=== PATIENT | male | born 1980 | race Asian ===

== ENCOUNTER 2017-06-19 16:21 | Emergency (ER) | payer MEDICAID ==
[2017-06-19 16:36] VITALS: BP 140/99; PULSE 78; RESP 16; TEMP 98.4; O2SAT 94
--- NOTE | 2017-06-19 16:36 | EDPHY ---
H & P Time Seen by Provider: 06/19/17 16:32 HPI/ROS: CHIEF COMPLAINT: Thirsty, concerned about glucose HISTORY OF PRESENT ILLNESS: Patient is a 37-year-old man with no significant past medical history who comes to the emergency department requesting glucose checking. He states that he was told 2 months ago at clinic that he was borderline diabetic. He is not on any medications. He states that for the last 48 hours he has been more thirsty than usual and this made him concerned about his glucose level. He otherwise does not feel ill. No pain. No fever. No diarrhea. No vomiting. No abdominal pain. No confusion. REVIEW OF SYSTEMS: Constitutional: denies: chills, fever, recent illness, recent injury EENTM: denies: blurred vision, double vision, nose congestion Respiratory: denies: cough, shortness of breath Cardiac: denies: chest pain, irregular heart rate, lightheadedness, palpitations Gastrointestinal/Abdominal: denies: abdominal pain, diarrhea, nausea, vomiting, blood streaked stools Genitourinary: denies: dysuria, frequency, hematuria, pain Musculoskeletal: denies: joint pain, muscle pain Skin: denies: lesions, rash, jaundice, bruising Neurological: denies: headache, numbness, paresthesia, tingling, dizziness, weakness Hematologic/Lymphatic: denies: blood clots, easy bleeding, easy bruising Immunologic/allergic: denies: HIV/AIDS, transplant EXAM: GENERAL: Well-appearing, well-nourished and in no acute distress. HEAD: Atraumatic, normocephalic. EYES: Pupils equal round and reactive to light, extraocular movements intact, sclera anicteric, conjunctiva are normal. ENT: TMs normal, nares patent, oropharynx clear without exudates. Moist mucous membranes. NECK: Normal range of motion, supple without lymphadenopathy or JVD. LUNGS: Breath sounds clear to auscultation bilaterally and equal. No wheezes rales or rhonchi. HEART: Regular rate and rhythm without murmurs, rubs or gallops. ABDOMEN: Soft, nontender, normoactive bowel sounds. No guarding, no rebound. No masses appreciated. BACK: No CVA tenderness, no spinal tenderness, step-offs or deformities EXTREMITIES: Normal range of motion, no pitting or edema. No clubbing or cyanosis. NEUROLOGICAL: Cranial nerves II through XII grossly intact. Normal speech, normal gait. 5/5 strength, normal movement in all extremities, normal sensation PSYCH: Normal mood, normal affect. SKIN: Warm, dry, normal turgor, no visible rashes or lesions. Source: Patient Exam Limitations: No limitations - Medical/Surgical History Hx Asthma: No Hx Chronic Respiratory Disease: No Hx Diabetes: No Hx Cardiac Disease: No Hx Renal Disease: No Hx Cirrhosis: No Hx Alcoholism: No Hx HIV/AIDS: No Hx Splenectomy or Spleen Trauma: No Other PMH: denies - Family History Significant Family History: No pertinent family hx - Social History Smoking Status: Never smoked Alcohol Use: Sober Drug Use: None Constitutional: Initial Vital Signs Temperature (C) 36.9 C 06/19/17 16:27 Heart Rate 78 06/19/17 16:27 Respiratory Rate 16 06/19/17 16:27 Blood Pressure 140/99 H 06/19/17 16:27 O2 Sat (%) 94 06/19/17 16:27 O2 Delivery Mode Room Air Allergies/Adverse Reactions: No Known Allergies Allergy (Verified 06/19/17 16:27) Home Medications: Medication Instructions Recorded NK [No Known Home Meds] 06/19/17 Medical Decision Making ED Course/Re-evaluation: We discussed the lab results. The patient is very grateful. He otherwise has no complaints and is ready to go home. We discussed follow-up and indications for returning. Differential Diagnosis: Partial list of the Differential diagnosis considered include but were not limited to; hyperglycemia, electrolyte abnormality, dehydration, anxiety and although unlikely based on the history and physical exam, I also considered fever, diarrhea, renal insufficiency, liver disease. I discussed these differential diagnoses and the plan with the patient as well as the usual and expected course. The patient understands that the diagnosis is provisional and that in medicine we are not always correct and that further workup is often warranted. Usual and customary warnings were given. All of the patient's questions were answered. The patient was instructed to return to the emergency department should the symptoms at all worsen or return, otherwise to followup with the physician as we discussed. - Data Points Laboratory Results: Laboratory Results 06/19/17 16:45 06/19/17 16:45 Sodium 141 mEq/L mEq/L (134-144) Potassium 4.4 mEq/L mEq/L (3.5-5.2) Chloride 100 mEq/L mEq/L (97-110) Carbon Dioxide 25 mEq/l mEq/l (22-31) Anion Gap 16 mEq/L mEq/L (8-16) BUN 20 mg/dL mg/dL (7-23) Creatinine 1.0 mg/dL mg/dL (0.7-1.3) Estimated GFR > 60 Glucose 81 mg/dL mg/dL (70-100) Calcium 10.4 mg/dL mg/dL (8.5-10.4) Total Bilirubin 1.0 mg/dL mg/dL (0.1-1.4) AST 24 IU/L IU/L (17-59) ALT 56 IU/L IU/L (21-72) Alkaline Phosphatase 83 IU/L IU/L (38-126) Total Protein 7.7 g/dL g/dL (6.3-8.2) Albumin 4.4 g/dL g/dL (3.5-5.0) Departure - Departure Disposition: Home, Routine, Self-Care Clinical Impression: Dehydration symptoms Condition: Fair Instructions: Dehydration (ED) Referrals: Pia Guerrero MD [Medical Doctor] - As per Instructions
[2017-06-19 17:03] LABS: ALANINE AMINOTRANSFERASE 56 IU/L (21-72); ALBUMIN 4.4 g/dL (3.5-5.0); ALKALINE PHOSPHATASE 83 IU/L (38-126); ANION GAP 16 mEq/L (8-16); ASPARTATE AMINOTRANSFERASE 24 IU/L (17-59); CALCIUM 10.4 mg/dL (8.5-10.4); CARBON DIOXIDE 25 mEq/l (22-31); CHLORIDE 100 mEq/L (97-110); GLOMERULAR FILTRATION RATE > 60; GLUCOSE 81 mg/dL (70-100); POTASSIUM 4.4 mEq/L (3.5-5.2); SODIUM 141 mEq/L (134-144); TOTAL PROTEIN 7.7 g/dL (6.3-8.2)
== END 2017-06-19 17:11 | disposition home or self-care (01) ==
LOC: CED 16:21
DX: E86.0 Dehydration (principal)
CPT/HCPCS: 80053-PO

== ENCOUNTER 2017-12-18 16:31 | Emergency (ER) | payer MEDICAID ==
[2017-12-18] MEDS ORDERED: ONDANSETRON 4 MG/2 ML VIAL IVP ONE (16:48)
[2017-12-18] MEDS ORDERED: KETOROLAC 30 MG/1 ML SDV IVP ONE (16:48)
[2017-12-18] MEDS: NS 1,000 ML IV ONE ×2 (16:50→17:55)
[2017-12-18 16:56] LABS: PLATELET COUNT 310 10^3/uL (150-400)
[2017-12-18] MEDS ORDERED: ACETAMINOPHEN 500 MG TAB PO ONE (17:02)
[2017-12-18] MEDS ORDERED: NS 1,000 ML IV ONE (17:19)
--- NOTE | 2017-12-18 17:53 | EDPHY ---
H & P Time Seen by Provider: 12/18/17 16:44 HPI/ROS: This patient complains of left lumbar back pain gradual in onset 2 days prior to arrival constant since that time and increasing in intensity with peak intensity 9/10 achy in nature nonradiating similar to pain from kidney stone in the past. He has associated nausea but no vomiting. He took ibuprofen yesterday-600 mg at bedtime with minimal relief. No other exacerbating factors. Patient reports associated dark appearing urine. He came in by private vehicle accompanied by his teenage son. ROS: Constitutional: No fevers or chills HEENT: No complaints new line pulmonary: No cough shortness of breath Cardiovascular: No chest pain or heart palpitations GI: He denies any associated abdominal pain. No belly distention. No pulsatile pain. : No testicular pain or swelling. No urethral discharge. 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 No midline back pain. Neuro: No numbness tingling weakness bowel or bladder incontinence. Complete review of symptoms is otherwise negative. Past Medical/Surgical History: Prior kidney stones Smoking Status: Never smoked Physical Exam: General Appearance: Alert, mild distress due to pain Eyes: Pupils equal and round no pallor or injection. ENT, Mouth: Mucous membranes moist. Respiratory: There are no retractions, lungs are clear to auscultation. Cardiovascular: Regular rate and rhythm. Gastrointestinal: Abdomen is soft and nontender, no masses, bowel sounds normal. Back: Positive left CVA tenderness. He also has some muscle spasm in the left paraspinous lumbar musculature. No midline tenderness. No right CVA tenderness. : No testicular tenderness. Neurological: GCS 15 without focal deficits. He maintains normal light touch sensory exam dry lower extremities 5/5 strength in great toe dorsiflexion plantar flexion bilaterally. Skin: Warm and dry, no rashes. Musculoskeletal: Neck is supple nontender. Extremities are symmetrical, full range of motion. Psychiatric: Mood and affect normal DIFFERENTIAL DIAGNOSIS: After history and physical exam differential diagnosis was considered for ureteral stone, pyelonephritis, lumbar muscle strain, discogenic disease Constitutional: Initial Vital Signs Temperature (C) 36.7 C 12/18/17 16:37 Heart Rate 67 12/18/17 16:37 Respiratory Rate 20 12/18/17 16:37 Blood Pressure 149/104 H 12/18/17 16:37 O2 Sat (%) 95 05/19/18 16:37 O2 Delivery Mode Room Air Allergies/Adverse Reactions: No Known Allergies Allergy (Verified 12/18/17 16:42) Home Medications: Medication Instructions Recorded Ondansetron Odt [Zofran Odt] 4 - 8 mg PO Q4PRN PRN #4 tab 12/18/17 Tamsulosin HCl [Flomax 0.4 MG (*)] 0.4 mg PO DAILY #10 cap 12/18/17 traMADol [Ultram 50 mg (*)] 50 - 100 mg PO Q4 PRN #20 tab 12/18/17 MDM/Departure - MDM Diagnostics: Urinalysis reveals hematuria CBC and basic metabolic panel are normal Imaging Results: KUB: I do not appreciate evidence of radiopaque nephrolithiasis/ureteral stone Procedures: Limited bedside renal ultrasound-indication renal colic and hematuria otherwise healthy young patient Procedure. After verbal consent using abdominal probe the right kidney is visualized with calices and collecting system normal in appearance. The left upper quadrant isn't visualized with left renal calices appearing distended and collecting system distended consistent with hydronephrosis. Impression: Left-sided hydronephrosis on limited bedside ultrasound Medications Given: Discontinued Medications Acetaminophen (Tylenol) 1,000 mg PO EDNOW ONE Stop: 12/18/17 17:03 Last Admin: 12/18/17 17:13 Dose: 1,000 mg Sodium Chloride (Ns) 1,000 mls @ 0 mls/hr IV EDNOW ONE; Wide Open PRN Reason: Protocol Stop: 12/18/17 16:49 Last Admin: 12/18/17 16:50 Dose: 1,000 mls Sodium Chloride (Ns) 1,000 mls @ 0 mls/hr IV ONCE ONE; Wide Open PRN Reason: Protocol Stop: 12/18/17 17:20 Last Admin: 12/18/17 17:56 Dose: 1,000 mls Ketorolac Tromethamine (Toradol) 15 mg IVP EDNOW ONE Stop: 12/18/17 16:49 Last Admin: 12/18/17 16:55 Dose: 15 mg Ketorolac Tromethamine (Toradol) 15 mg IVP EDNOW ONE Stop: 12/18/17 17:59 Last Admin: 12/18/17 18:05 Dose: 15 mg Ondansetron HCl (Zofran) 4 mg IVP EDNOW ONE Stop: 12/18/17 16:49 Last Admin: 12/18/17 16:57 Dose: 4 mg Ondansetron HCl (Zofran Odt 4 Mg Prepack#2) 1 btl TAKEHOME EDNOW ONE Stop: 12/18/17 19:39 Last Admin: 12/18/17 19:46 Dose: 1 btl Tamsulosin HCl (Flomax) 0.4 mg PO EDNOW ONE Stop: 12/18/17 18:29 Last Admin: 12/18/17 18:32 Dose: 0.4 mg Tramadol HCl (Ultram) 100 mg PO EDNOW ONE Stop: 12/18/17 20:19 Last Admin: 12/19/17 04:52 Dose: Not Given ED Course/Re-evaluation: IV Toradol, and Zofran, p.o. Tylenol with improvement in pain from initial 9/10 down to 5/10. Patient felt some improvement. Tx'd with 2 L normal saline bolus Flomax p.o. Discussion: Patient with findings of renal colic, gross hematuria, on helpful KUB but limited bedside ultrasound with findings consistent with hydronephrosis on the left. These findings are consistent with left ureteral stone I counseled patient regarding this. Will continue him on Flomax, ibuprofen and Tylenol and tramadol in addition if needed for pain control. Zofran if needed for nausea or vomiting. The patient is given a filter instructed to filter is urine with plan to follow up with Dr. Copeland, urology if he has not passed a stone over the next 3-5 days. He understands need to return should she develop any significant worsening of symptoms despite the treatment plan - Depart Disposition: Home, Routine, Self-Care Clinical Impression: Renal colic on left side, History of nephrolithiasis Hematuria Qualifiers: Hematuria type: gross Qualified Code(s): R31.0 - Gross hematuria Condition: Good Instructions: Ureteral Stones (ED) Additional Instructions: Diagnosis: Kidney pain with bloody urine You likely have a ureteral stone. Plan: Drink plenty fluids Ibuprofen-600 mg per 6 hr for pain as needed Tylenol in addition Tramadol in addition if needed. No driving, alcohol or come tramadol Zofran if needed for nausea. This mellitus under the tongue. Flomax medication to help dilate the ureter to make it more likely feet to pass the stone. Filter your urine to document passage of the stone Follow up with Dr. Copeland-urologist if you have not passed the stone with treatment plan over the next few days. Return emergency department for any significant worsening despite treatment plan such as onset of vomiting or other concerns Prescriptions: Ondansetron Odt [Zofran Odt] 4 - 8 mg PO Q4PRN PRN #4 tab PRN Reason: Vomiting Tamsulosin HCl [Flomax 0.4 MG (*)] 0.4 mg PO DAILY #10 cap traMADol [Ultram 50 mg (*)] 50 - 100 mg PO Q4 PRN #20 tab PRN Reason: breakthrough pain Referrals: ERICK ZHANG [Other] - As per Instructions Garland Copeland MD [Medical Doctor] - As per Instructions
[2017-12-18] MEDS ORDERED: KETOROLAC 15 MG/1 ML SDV IVP ONE (17:58)
[2017-12-18] MEDS ORDERED: TAMSULOSIN HCL 0.4 MG CAP PO ONE (18:28)
[2017-12-18] MEDS ORDERED: ONDANSETRON 4MG PREPACK#2 BTL TAKEHOME ONE (19:38)
[2017-12-18 19:51] VITALS: BP 132/62
[2017-12-18] MEDS ORDERED: traMADol 50 MG TAB PO ONE (20:18)
== END 2017-12-18 19:50 | disposition home or self-care (01) ==
LOC: CED 16:31
DX: N23 Unspecified renal colic (principal); R31.0 Gross hematuria; E86.9 Volume depletion, unspecified; Z87.442 Personal history of urinary calculi
CPT/HCPCS: 74018-PO; 80048-PO; 81015-PO; 96374; J1885; J2405

== ENCOUNTER 2018-01-05 22:07 | Emergency (ER) | payer MEDICAID ==
[2018-01-05] MEDS ORDERED: NS 1,000 ML IV ONE (22:12)
--- NOTE | 2018-01-05 22:17 | EDPHY ---
H & P Source: Patient - Medical/Surgical History Hx Asthma: No Hx Chronic Respiratory Disease: No Hx Diabetes: No Hx Cardiac Disease: No Hx Renal Disease: No Hx Cirrhosis: No Hx Alcoholism: No Hx HIV/AIDS: No Hx Splenectomy or Spleen Trauma: No Other PMH: kidney inf. HTN - Social History Smoking Status: Never smoked Time Seen by Provider: 01/05/18 22:17 HPI/ROS: HPI CHIEF COMPLAINT: Hematuria, Lower abdominal pain. HISTORY OF PRESENT ILLNESS: Patient is a 37-year-old male, is otherwise healthy does have a history of kidney stones, he was recently seen here in the emergency room on 12/18 for back pain and hematuria and diagnosed with a kidney stone. At that time he had an x-ray and a limited bedside ultrasound that did not reveal any kidney stones. However he was not treated empirically with Flomax tramadol and Zofran. Patient now presents back to the emergency room with lower abdominal pain and worsening hematuria. Patient denies any vomiting or fever. Denies chills. Denies significant flank pain. Pain is located 7/10 in his lower abdomen. He states that he noticed some blood in his urine last night however progressively got worse this evening. Past Medical History: Kidney stones, hypertension Past Surgical History: Denies any recent surgery Social History: Denies daily use of drugs alcohol tobacco. Family History: Noncontributory ROS REVIEW OF SYSTEMS: A comprehensive 10 point review of systems is otherwise negative aside from elements mentioned in the history of present illness. Exam Constitutional appears nontoxic no acute distress, triage nursing summary reviewed, vital signs reviewed, awake/alert. Eyes normal conjunctivae and sclera, EOMI, PERRLA. HENT normal inspection, atraumatic, moist mucus membranes, no epistaxis, neck supple/ no meningismus, no raccoon eyes. Respiratory clear to auscultation bilaterally, normal breath sounds, no respiratory distress, no wheezing. Cardiovascular rate normal, regular rhythm, no murmur, no edema, distal pulses normal. Gastrointestinal very subtle tenderness in lower abdomen, no rebound, no guarding, normal bowel sounds, no distension, no pulsatile mass. Genitourinary no CVA tenderness. Musculoskeletal no midline vertebral tenderness, full range of motion, no calf swelling, no tenderness of extremities, no meningismus, good pulses, neurovascularly intact. Skin pink, warm, & dry, no rash, skin atraumatic. Neurologic awake, alert and oriented x 3, AAOx3, moves all 4 extremities equally, motor intact, sensory intact, CN II-XII intact, normal cerebellar, normal vision, normal speech. Psychiatric normal mood/affect. Heme/Lymph/Immune no lymphadenopathy. Differential diagnosis includes but is not limited to and in no particular order : Kidney stones, hydroureter, hydronephrosis, bladder stone, bladder cancer, Bowel obstruction, appendicitis, gallbladder disease, diverticulitis, colitis, enteritis, perforated viscus, gastritis, GERD, esophagitis, urinary tract infection, pyelonephritis, kidney stones Medical Decision Making: Plan for this patient given his lower abdominal pain with hematuria will obtain blood work, urine dip and then send formal urinalysis , check basic blood work including chemistry in kidney function additionally CT scan abdomen pelvis without contrast for hematuria lower abdominal pain concerning for kidney stone. I think AAA is unlikely. Will start the patient with IV fluids. Toradol for pain control. Re-evaluation: 2252: CT scan abdomen pelvis without IV contrast shows a left-sided UPJ stone. 4.5 mm with mild hydronephrosis. I have updated the patient about his kidney stone. He will need to follow up with Urology. I have ordered him a new prescription for Flomax, [place] and Zofran. Patient understands return emergency room if develops worsening abdominal pain flank pain fever vomiting. Urinalysis pending at this time. As well as CBC. (Sean Arrieta) Constitutional: Initial Vital Signs Temperature (C) 36.4 C 01/05/18 22:17 Heart Rate 88 01/05/18 22:17 Respiratory Rate 16 01/05/18 22:17 Blood Pressure 143/100 H 01/05/18 22:17 O2 Sat (%) 96 01/05/18 22:17 O2 Delivery Mode Room Air Allergies/Adverse Reactions: No Known Allergies Allergy (Verified 01/05/18 22:21) Home Medications: Medication Instructions Recorded Ondansetron Odt [Zofran Odt] 4 - 8 mg PO Q4PRN PRN #4 tab 12/18/17 Tamsulosin HCl [Flomax 0.4 MG (*)] 0.4 mg PO DAILY #10 cap 12/18/17 traMADol [Ultram 50 mg (*)] 50 - 100 mg PO Q4 PRN #20 tab 12/18/17 Ciprofloxacin [Cipro] 500 mg PO BID #10 tab 01/05/18 Hydrocodone/APAP 5/325 [Apache 1 - 2 tab PO Q4H PRN #10 tab 01/05/18 5/325] Ondansetron HCl [Zofran] 4 mg PO Q4-6PRN PRN #10 tablet 01/05/18 Tamsulosin HCl [Flomax] 0.4 mg PO DAILY #10 cap 01/05/18 Medical Decision Making Other Provider: For the most part this patient's care was performed by Dr. Martin. At the time of change of shift his CBC urinalysis are pending. I discussed the case with Dr. Martin and related the final formation of the laboratory values to the patient. Briefly patient seen approximately 2 weeks ago at which time he had a clinically suspected kidney stone with normal bedside ultrasound not showing significant obstruction with hematuria without significant bacteriuria. In the interim he was doing well until yesterday when he started having the pain. This time, his urinalysis reveals 1+ bacteria on a rather dilute specimen 1.004. I have asked for culture performed. His CBC is normal. Renal function is preserved. As to his elevated glucose of 200, his was normal on the 17 of December at 88. Thereby, no reason to truly suspect that he has diabetes per se. Films reviewed by me on the PACS. Radiologist dictated report reviewed. I have discussed the case with Dr. Shellie johnson who is on-call for Urology. As the patient is doing well clinically, nontoxic, with normal white count and no fever, he recommends follow-up tomorrow, Dr. Stevens will be in the office. In the interim he would like the patient to be on an antibiotic, we discussed using Cipro. Differential diagnosis includes, but is not limited to: Renal colic, kidney stones, ureterolithiasis, appendicitis, gastritis, mesenteric adenitis, muscle strain. Constipation. (Curtis Cardnoa) - Data Points Laboratory Results: Laboratory Results 01/05/18 22:22 Medications Given: Discontinued Medications Ciprofloxacin (Cipro) 500 mg PO EDNOW ONE PRN Reason: Protocol Stop: 01/05/18 23:39 Last Admin: 01/05/18 23:50 Dose: 500 mg Sodium Chloride (Ns) 1,000 mls @ 0 mls/hr IV ONCE ONE PRN Reason: Wide Open Stop: 01/05/18 22:13 Last Admin: 01/05/18 22:44 Dose: 1,000 mls Ketorolac Tromethamine (Toradol) 15 mg IVP EDNOW ONE Stop: 01/05/18 22:52 Last Admin: 01/05/18 22:58 Dose: 15 mg Departure - Departure Disposition: Home, Routine, Self-Care Clinical Impression: Kidney stone Condition: Good Instructions: Kidney Stones (ED) Additional Instructions: 1. Drink lots of fluids stay well-hydrated 2. Please follow up with Urology. 3. Return to the emergency room if you have worsening pain, vomiting or fever. ALSO: - strain your urine to see if you catch the stone - stay out of the sun while on the CIPRO as it can cause phototoxicity = worse than a sun burn. Referrals: Patient,NotPresent [Primary Care Provider] - As per Instructions Tomy Hensley MD [Medical Doctor] - 1 day without fail (We spoke with Dr. Hensley, who stated pt to be seen [facility], 01/06. Llikely by Dr. Joshua.) Stand Alone Forms: Work Excuse Prescriptions: Ciprofloxacin [Cipro] 500 mg PO BID #10 tab Hydrocodone/APAP 5/325 [[place]ache 5/325] 1 - 2 tab PO Q4H PRN #10 tab PRN Reason: Pain, Moderate Ondansetron HCl [Zofran] 4 mg PO Q4-6PRN PRN #10 tablet PRN Reason: Nausea/Vomiting, Use 1st Tamsulosin HCl [Flomax] 0.4 mg PO DAILY #10 cap
[2018-01-05] MEDS ORDERED: KETOROLAC 15 MG/1 ML SDV IVP ONE (22:51)
[2018-01-05 23:05] LABS: PLATELET COUNT 284 10^3/uL (150-400)
[2018-01-05] MEDS ORDERED: CIPROFLOXACIN 500 MG TAB PO ONE (23:38)
[2018-01-06 00:03] VITALS: BP 140/92
== END 2018-01-05 23:50 | disposition home or self-care (01) ==
LOC: CED 22:07
DX: N20.0 Calculus of kidney (principal); I10 Essential (primary) hypertension; E86.9 Volume depletion, unspecified
CPT/HCPCS: 74176-PO; 80053-PO; 96374; J1885

== ENCOUNTER 2018-07-22 12:33 | Inpatient (IN) | payer MEDICAID ==
[2018-07-22] MEDS ORDERED: ONDANSETRON 4 MG/2 ML VIAL IVP ONE (12:54)
[2018-07-22] MEDS ORDERED: NS 1,000 ML IV ONE ×2 (12:54)
[2018-07-22] MEDS ORDERED: HYDROmorphONE/DILAUDID 2 MG/ML INJ IVP ONE (12:55)
[2018-07-22] MEDS ORDERED: KETOROLAC 15 MG/1 ML SDV IVP ONE (13:30)
[2018-07-22] MEDS ORDERED: METOCLOPRAMIDE 10 MG/2 ML VIAL IVP ONE (13:53)
[2018-07-22] MEDS ORDERED: TAMSULOSIN HCL 0.4 MG CAP PO ONE (14:20)
--- NOTE | 2018-07-22 14:28 | EDPHY ---
H & P Smoking Status: Never smoked Time Seen by Provider: 07/22/18 12:47 HPI/ROS: This patient has recently been worked up for known kidney stones including a 6 mm stone in the lower pole of the right kidney and presents with onset of right flank pain severe intensity since 4:00 a.m.. The pain is 10/10 despite taking 2 Percocets 2 hr prior to arrival. He tried Percocet earlier in the morning and vomited thereafter. He has ongoing nausea currently. He notes no other associated symptoms except difficulty urinating. He describes no significant urge to urinate despite hydrating. He denies any other associated symptoms. He denies any radiation of the pain from his right flank. ROS: Constitutional: No fevers or other symptoms Pulmonary: No shortness of breath Cardiovascular: No lightheadedness GI: No belly pain. Normal bowel movements. : No testicular pain or swelling. No urethral discharge. No hematuria. No dysuria 10 point review of symptoms is performed and otherwise negative with exception of pertinent positives and negatives listed in HPI and ROS (Ricardo Gonzalez) Past Medical/Surgical History: Kidney stones followed by Dr. Hensley, urology (Ricardo Gonzalez) Physical Exam: General Appearance: Alert, in moderate distress due to pain Eyes: Pupils equal and round no pallor or injection. ENT, Mouth: Mucous membranes moist. Respiratory: There are no retractions, lungs are clear to auscultation. Cardiovascular: Regular rate and rhythm. Gastrointestinal: Abdomen is soft and nontender, no masses, bowel sounds normal. Back: Positive right CVA tenderness : No testicular tenderness Neurological: GCS 15 Skin: Warm and dry, no rashes. Musculoskeletal: Neck is supple nontender. Extremities are symmetrical, full range of motion. Psychiatric: Mood and affect are normal DIFFERENTIAL DIAGNOSIS: After history and physical exam differential diagnosis was considered for ureteral stone, pyelonephritis or other UTI, musculoskeletal back pain (Ricardo Gonzalez) Constitutional: Initial Vital Signs Temperature (C) 36.5 C 07/22/18 12:43 Heart Rate 76 07/22/18 12:43 Respiratory Rate 16 07/22/18 12:43 Blood Pressure 142/92 H 07/22/18 12:43 O2 Sat (%) 94 07/22/18 12:43 O2 Delivery Mode Room Air O2 (L/minute) 2 Allergies/Adverse Reactions: No Known Allergies Allergy (Verified 07/22/18 12:39) Home Medications: Medication Instructions Recorded traMADol [Ultram 50 mg (*)] 50 - 100 mg PO Q4 PRN #20 tab 12/18/17 Ondansetron HCl [Zofran] 4 mg PO Q4-6PRN PRN #10 tablet 01/05/18 Lisinopril [Zestril 10 mg (*)] 10 mg PO DAILY 07/22/18 Potassium Cl [Klor-Con 20 meq (*)] 20 meq PO DAILY 07/22/18 Tamsulosin HCl [Flomax] 0.4 mg PO DAILY #10 capsule 07/22/18 oxyCODONE/APAP 5/325 [Percocet 1 tab PO Q6 PRN 07/22/18 5/325 (*)] MDM/Departure - MDM Imaging: Discussed imaging studies w/ fisher scallop Radiologist - MDM Imaging Results: Imaging Impressions Abdomen/Pelvis CT 07/22/18 13:11 Impression: 1. Moderate right hydronephrosis secondary to a 5 x 6 x 8 mm lumbar-level ureterolith. 2. Nonobstructive punctate left nephrolithiasis. Findings were discussed with RICARDO GONZALEZ MD at 13:49, on 07/22/2018. Attention: This CT examination is specifically designed to evaluate patients who are clinically suspected of having acute obstructive uropathy. This examination does not use radiographic contrast, and as such, provides only a limited evaluation of the abdomen, pelvis, and retroperitoneum. If there is further clinical suspicion for pathological conditions other than obstructive uropathy, a complete CT evaluation of the abdomen and pelvis utilizing intravenous, oral, and rectal contrast should be considered. Medications Given: Potassium Chloride/Sodium Chloride (Ns W/ 20 Kcl/L) 1,000 mls @ 125 mls/hr IV CONT FESTUS Stop: 01/18/19 21:29 Last Admin: 07/22/18 22:27 Dose: 1,000 mls Tamsulosin HCl (Flomax) 0.4 mg PO DAILY FESTUS Stop: 01/18/19 21:29 Last Admin: 07/22/18 22:30 Dose: 0.4 mg Discontinued Medications Diphenhydramine HCl (Benadryl Injection) 25 mg IVP EDNOW ONE Stop: 07/22/18 13:54 Last Admin: 07/22/18 14:07 Dose: 25 mg Hydromorphone HCl (Dilaudid) 1 mg IVP EDNOW ONE Stop: 07/22/18 12:56 Last Admin: 07/22/18 13:15 Dose: 1 mg Sodium Chloride (Ns) 1,000 mls @ 0 mls/hr IV EDNOW ONE; Wide Open PRN Reason: Protocol Stop: 07/22/18 12:55 Last Admin: 07/22/18 13:30 Dose: 1,000 mls Sodium Chloride (Ns) 1,000 mls @ 0 mls/hr IV EDNOW ONE; Wide Open PRN Reason: Protocol Stop: 07/22/18 12:55 Last Admin: 07/22/18 14:11 Dose: 1,000 mls Ketorolac Tromethamine (Toradol) 15 mg IVP EDNOW ONE Stop: 07/22/18 13:31 Last Admin: 07/22/18 13:59 Dose: 15 mg Metoclopramide HCl (Reglan Injection) 10 mg IVP EDNOW ONE Stop: 07/22/18 13:54 Last Admin: 07/22/18 14:07 Dose: 10 mg Ondansetron HCl (Zofran) 4 mg IVP EDNOW ONE Stop: 07/22/18 12:55 Last Admin: 07/22/18 13:15 Dose: 4 mg Tamsulosin HCl (Flomax) 0.4 mg PO EDNOW ONE Stop: 07/22/18 14:21 Last Admin: 07/22/18 14:31 Dose: 0.4 mg ED Course/Re-evaluation: IV Zofran 4 mg with initial relief of nausea 1 mg Dilaudid IV and 15 mg of Toradol IV with partial relief of pain Patient had recurrence of vomiting treated with Reglan and Benadryl Is also treated with Flomax p. O. After review of CT results Discussed the CT results with Dr. Villagran-mid right ureteral stone 6 x 5 x 8 mm with moderate hydronephrosis on the right side A placed a call to Dr. Hensley's office-urology at 2:30 p.m. He was in a procedure at that time but will call back postprocedure 12 coordinate care plan for this patient with large ureteral with At 3:00 p.m. The patient's pain is under good control in his nausea is controlled. Discussed case with Dr. Gretchen Murphy at 3:00 p.m. Who will follow up with call from Dr. Raya for and final disposition. (Ricardo Gonzalez) I took over care of this patient at 3:00 p.m.. This patient presents with with a history of ureterolithiasis. He has a 6 mm right-sided ureteral stone at the L3, L4 level with moderate hydronephrosis. His medications in the emergency department have included Zofran, Dilaudid, Toradol, Benadryl and Reglan. He received the Benadryl and Reglan secondary to continued vomiting after Zofran. He is currently sleepy and needs more time to metabolize his medication. He is then to be reassessed for disposition. 4:45 p.m., the patient was re-evaluated, currently his pain is well controlled. I again reviewed results of his CT scan findings and diagnosis. I discussed admission with him for observation, pain control and urology consultation. At this time he does not want to be admitted. The patient competently engages in shared decision making. They demonstrate capacitance to make decisions. His son is currently in the room with him. Dr. Gonzalez has prescribed him Flomax, Zofran and Percocet for pain control. He lives a 0.5 mi from the emergency department and states he can easily return here if need be. He said he will arrange for follow-up with Dr. Hensley, his urologist, next week. He has been instructed to return to the emergency department for uncontrolled pain, vomiting , fever or other serious concerns. All of his questions were answered. He was discharged from the emergency department in good condition with his son. We have arranged for a taxi to take them 1/2 mi home. 6:00 p.m., I reviewed the patient's chart as well as blood work. He has a significant elevation of his creatinine at 1.6. He had a normal creatinine in December of this year. We contacted the patient. He stated that his pain was starting to come back. I have instructed him to return to the emergency department for pain control and admission. I feel it is unlikely given the holiday that he will be able to follow up with his urologist on Wednesday. I feel admission to the hospitalist service is warranted at this time. I feel he will need urology consultation as well as IV hydration and pain control at minimum. The patient is in agreement to return to the emergency department to be admitted to our hospitalist service. 7:00 p.m., IV re-established on the patient. He was started on IV normal saline with a rate of 250 cc an hour for the next 2 hr. He will be given IV hydromorphone at 0.5 mg as needed for pain. Hospitalist paged. 7:30 p.m., spoke with on-call hospitalist Dr. Damon. Case discussed in detail with him. He accepts this patient for admission to the hospitalist service. Urology consultation deferred to the hospitalist service. I have filled out the appropriate transfer paperwork. The patient will go by private vehicle with a relative to the [facility]. His remaining emergency department course under my care has been uneventful. He was transferred in stable condition to the [facility]. (Marcus Murphy) - Depart Disposition: [facility] Inpatient Acute Clinical Impression: Ureteral stone with hydronephrosis, Elevated serum creatinine, Acute kidney injury
[2018-07-22] MEDS ORDERED: ONDANSETRON DISINTEGRATING 4 MG TAB PO PRN (21:17)
[2018-07-22] MEDS ORDERED: ONDANSETRON 4 MG/2 ML VIAL IVP PRN (21:17)
[2018-07-22] MEDS ORDERED: HYDROmorphONE/DILAUDID 1 MG/ML INJ IVP PRN (21:17)
[2018-07-22] MEDS ORDERED: ACETAMINOPHEN 325 MG TAB PO PRN (21:17)
[2018-07-22] MEDS: NS W/ 20 KCl/L 1,000 ML IV SCH (22:27)
[2018-07-22] MEDS: TAMSULOSIN HCL 0.4 MG CAP PO SCH (22:30)
--- NOTE | 2018-07-23 01:52 | GHP ---
DATE OF ADMISSION: 07/22/2018 CHIEF COMPLAINT: Right flank pain. HISTORY OF PRESENT ILLNESS: The patient is a 38-year-old gentleman with a past medical history of hy pertension as well as nephrolithiasis, who presented to the [facility] with complaints of right flank pain. He had a CT scan of his abdomen and pelvis performed, which showed moderate rig ht hydronephrosis secondary to a 5 x 6 x 8 mm lumbar level ureter stone. His creatinine was also not ed to be at 1.6, previously at 1.1. The patient was then transported by private vehicle to [facility] for direct admission. I reviewed the case with Dr. Monahan with nephrology operations label clerk this w farshad, while the patient was en route. He requested that we call him on Wednesday with the patient's room number, so that he can formally consult on the case. PAST MEDICAL HISTORY: Hypertension and nephrolithiasis. PAST SURGICAL HISTORY: None. MEDICATIONS: Lisinopril 10 mg daily, Flomax 0.4 mg daily. ALLERGIES: No known drug allergies. FAMILY HISTORY: No family history of nephrolithiasis. SOCIAL HISTORY: The patient is currently with children. He is a nonsmoker. REVIEW OF SYSTEMS: Ten-point review of systems was obtained and negative. No complaints of any feve rs or chills. EXAM: VITAL SIGNS: Temperature 36.8, blood pressure 114/75, heart rate 77, respirations 16, satting 94% on room air. GENERAL: Patient appears comfortable. He is awake, alert, conversant, no acute d istress. HEENT: Extraocular movements intact. No scleral icterus. NECK: Supple. No thyroid enla rgement. CHEST: Clear on auscultation. HEART: Regular rate and rhythm. No murmurs. ABDOMEN: So ft, nontender, nondistended. Normal bowel sounds. : No Healy catheter in place. EXTREMITIES: N o significant pitting edema. NEUROLOGIC: Cranial nerves 2-12 intact. LABS: Sodium 141, potassium 3.2, chloride 100, bicarb 24, BUN 16, creatinine 1.6, glucose of 95. ASSESSMENT/PLAN: 1. Acute kidney injury-secondary to hydronephrosis. Intravenous fluids overnight. Repeat creatinin e in the morning. Urology consultation also pending. 2. Ureter stone. Flomax started. Await formal urology consultation. 3. Hypokalemia. Replace. 4. Deep venous thrombosis prophylaxis. Hold heparin or Lovenox in light of potential intervention. DISPOSITION: Will admit under observation status at this time. /[id number]/MODL
[2018-07-23 04:54] LABS: PLATELET COUNT 235 10^3/uL (150-400)
[2018-07-23] MEDS: NS W/ 20 KCl/L 1,000 ML IV SCH (07:59)
[2018-07-23] MEDS: TAMSULOSIN HCL 0.4 MG CAP PO SCH (08:59)
[2018-07-23] MEDS ORDERED: POTASSIUM CL 20 MEQ TAB PO SCH (09:00)
[2018-07-23] MEDS ORDERED: NS 1,000 ML IV SCH (11:00)
[2018-07-23] MEDS ORDERED: IOPAMIDOL (ISOVUE-M 300) 15 ML VIAL ONE (12:33)
[2018-07-23] MEDS ORDERED: LIDOCAINE 2% JELLY 20 ML (UROJECT) ONE (13:01)
[2018-07-23] MEDS ORDERED: IOTHALAMATE MEG (CYSTO-CONRAY II) 250 ML VIAL BLADIN ONE (13:01)
[2018-07-23] MEDS ORDERED: CEFAZOLIN 2 GM/DEXTROSE/100 ML BAG IV ONE (13:03)
[2018-07-23] MEDS ORDERED: PROPOFOL 200 MG/20 ML VIAL ONE (13:24)
[2018-07-23] MEDS ORDERED: DEXAMETHASONE 4 MG/ML VIAL ONE ×2 (13:24)
[2018-07-23] MEDS ORDERED: ROCURONIUM 50 MG/5 ML VIAL ONE (13:24)
[2018-07-23] MEDS ORDERED: fentaNYL 250 MCG/5 ML INJ ONE (13:24)
[2018-07-23] MEDS ORDERED: LIDOCAINE 2% 100 MG/5 ML SYR ONE (13:25)
--- NOTE | 2018-07-23 13:41 | HOSPPROG ---
Hospitalist Progress Note Assessment/Plan: #Right sided Nephrolithiasis -[id number] right sided ureteral stone -Lithotripsy #ZANE #Right sided Hydronephrosis #Dehydration #Hx of HTN, holding Lisinopril #Hypokalemia, resolved Plan: Lithotripsy Hold Lisinopril cont IVF. Still dehydrated, would keep overnight Hold K replacement as now resolved change to inpatient. Subjective: no cp or sob. no n/v. will have Lithotripsy today Objective: Vital Signs Temp Pulse Resp BP Pulse Ox 36.9 C 84 16 121/71 H 94 07/23/18 13:06 07/23/18 13:06 07/23/18 13:06 07/23/18 13:06 07/23/18 13:06 Laboratory Results 07/23/18 04:14 07/23/18 04:14 07/22/18 07/23/18 07/24/18 05:59 05:59 05:59 Intake Total 1800 900 Balance 1800 900 - Physical Exam Constitutional: no apparent distress Eyes: PERRL Ears, Nose, Mouth, Throat: moist mucous membranes Cardiovascular: regular rate and rhythym Respiratory: no respiratory distress, no rales or rhonchi Gastrointestinal: normoactive bowel sounds, soft, non-tender abdomen Skin: warm Neurologic: AAOx3 Psychiatric: interacting appropriately, not anxious, not encephalopathic Lymph, Heme, Immunologic: No petechiae ICD10 Worksheet Patient Problems: Problems Problem Status Onset Acute kidney injury Acute Elevated serum creatinine Acute Ureteral stone with hydronephrosis Acute Hematuria Acute History of nephrolithiasis Acute Sprain of left forearm Acute
[2018-07-23] MEDS ORDERED: ALBUTEROL 3 ML DEYVIAL IH PRN (14:08)
[2018-07-23] MEDS ORDERED: fentaNYL 100 MCG/2 ML INJ IVP PRN (14:08)
[2018-07-23] MEDS ORDERED: MEPERIDINE 25 MG/0.5 ML AMP IVP PRN (14:08)
[2018-07-23] MEDS ORDERED: NALOXONE HCL 0.4 MG/ML INJ IVP PRN (14:08)
[2018-07-23] MEDS ORDERED: ONDANSETRON 4 MG/2 ML VIAL IVP PRN (14:08)
--- NOTE | 2018-07-23 14:08 | PDANEPAE ---
ANE Past Medical History - Pulmonary History Hx Oxygen in Use at Home: No Hx Sleep Apnea: No Sleep Apnea Screening Result - Last Documented: Negative - Endocrine History Hx Diabetes: No ANE Review of Systems Review of Systems: ANE Patient History - Allergies Allergies/Adverse Reactions: No Known Allergies Allergy (Verified 07/22/18 12:39) - Home Medications Home Medications: Potassium Cl [Klor-Con 20 meq (*)] 20 meq PO DAILY 07/22/18 [Last Taken 08:00] oxyCODONE/APAP 5/325 [Percocet 5/325 (*)] 1 tab PO Q6 PRN 07/22/18 [Last Taken Unknown] Hydrochlorothiazide [HCTZ (*)] 12.5 mg PO DAILY 07/23/18 [Last Taken 07/23/18 08 :00] - NPO status NPO Since - Liquids (Date): 07/22/18 NPO Since - Liquids (Time): 23:50 NPO Since - Solids (Date): 07/22/18 NPO Since - Solids (Time): 22:00 - Smoking Hx Smoking Status: Never smoked ANE Labs/Vital Signs - Labs Result Diagrams: 07/23/18 04:14 07/23/18 04:14 - Vital Signs Blood Pressure: 121/71 Heart Rate: 84 Respiratory Rate: 16 O2 Sat (%): 94 Height: 162.56 cm Weight: 72.575 kg ANE Physical Exam - Airway Neck exam: FROM Mallampati Score: Class 2 Mouth exam: poor dentition - Pulmonary Pulmonary: no respiratory distress - Cardiovascular Cardiovascular: regular rate and rhythym - ASA Status ASA Status: II ANE Anesthesia Plan Anesthesia Plan: general endotracheal anesthesia
[2018-07-23] MEDS ORDERED: SUGAMMADEX SODIUM 200 MG/2 ML VIAL IVP ONE (14:33)
--- NOTE | 2018-07-23 14:44 | PDMN ---
Medical Necessity Medical necessity: Pt meets INPT criteria per MD as of 07/23/18 and [facility] M-320 Renal Colic and Kidney Stones (est. LOS >2 MN for ongoing eval/mgmt of nephrolithiasis, ZANE, dehydration; requiring cont. IVF; lithotripsy pending).
--- NOTE | 2018-07-23 15:17 | POSTANESTH ---
Post Anesthetic Evaluation Cardiovascular Status: Similar to Pre-Op Cond Respiratory Status: Similar to Pre-op Cond. Level of Consciousness/Mental Status: Mildly Sleepy, Arousable Pain Control: Adequate, Prn Tx Ordered Nausea/Vomiting Control: Adequate, Prn Tx Ordered Complications Possibly Related to Anesthesia: None Noted
[2018-07-23] MEDS: HYDROCODONE/APAP 5/325 TAB PO PRN ×3 (16:24→22:32)
--- NOTE | 2018-07-23 17:34 | ASMTCMCOM ---
CM Note CM Note Notes: CM reviewed chart. Pt lives in [place] with and was admitted for lithotripsy d/t kidney stones. Sx was yesterday and pt still has elevated creatinine today. No therapies have been ordered. Pt likely to discharge independently. CM to follow. No CM needs identified at this time. D/C Plan: independent. Date Signed: 07/23/2018 05:33 PM Electronically Signed By:Jacquie Weaver
--- NOTE | 2018-07-23 18:08 | GCON ---
DATE OF CONSULTATION: 07/23/2018 REASON FOR CONSULTATION: Right flank pain. HISTORY OF PRESENT ILLNESS: Patient is a 38-year-old gentleman with a 6 mm right ureteral stone with hydronephrosis. He was transferred from an outside facility to [facility] for care. It is unclear as to why he was transferred. States it was for pain control although he seems to be comfortable at this point. He denies any fevers or chills. He has no urinary complaints. Denies a ny prior surgeries. He has had stones in the past, but has never seen a urologist. He is otherwise healthy besides hypertension. He has been n.p.o. He denies any allergies. No significant family hi story. PHYSICAL EXAMINATION: GENERAL: He is in no apparent distress. He seems to speak Irish very well and understands. We discussed treatment options including trial of passage, ESWL, and ureteroscopic laser lithotripsy with stent placement. He prefers definitive management. We discussed the risks an d benefits of ureteroscopic laser lithotripsy. We discussed risk of damage to the kidney, damage to the ureter, risk of anesthesia, which include heart attack, stroke, , risk of infection, risk of sepsis, stent discomfort and made it very clearly he has to follow up in the office to have the sten t removed due to the dangers of retained stent with possible loss of his kidney. He understands all these risks and wishes to proceed. VITAL SIGNS: Afebrile. Vitals are stable. LUNGS: Clear. HEAR T: Regular. ABDOMEN: Soft, nontender, nondistended. Some right flank mild tenderness upon deep pa lpation. Normal male genitalia. LABORATORY VALUES: Essentially normal. His creatinine is mildly elevated at 1.6. PLAN: Patient with a 6 mm right ureteral stone. We discussed treatment options. He wished to proce ed. Ureteroscopic laser lithotripsy with stent placement. He understands all the risks. He underst ands the benefits and wishes to proceed. He will follow up in the office in approximately a week or 2 to have the stent taken out. I gave him my card with my contact information. He should be able to be discharged home after the procedure. He should not require any further hospitalization. ___normally done on an outpatient basis. /[id number]/MODL
--- NOTE | 2018-07-24 02:11 | GOP ---
DATE OF OPERATION: 07/23/2018 SURGEON: Edgardo Monahan MD MANAGER MOLECULAR: None. ANESTHESIA: General. PREOPERATIVE DIAGNOSIS: Right proximal ureteral stone, large. POSTOPERATIVE DIAGNOSIS: Right proximal ureteral stone, large. PROCEDURE PERFORMED: right ureteroscopic laser lithotrypsy with stent placemetn and rpg FINDINGS: large stone prox ureter SPECIMENS: None. ESTIMATED BLOOD LOSS: None. DESCRIPTION OF PROCEDURE: After informed consent obtained, the patient was prepped and draped in sterile fashion. Patient was placed in the lithotomy position. A 22-Korean rigid cystoscope sheath was introduced. He had for his age a very tight prostate with a high bladder neck. The orifices were identified on the right. Retrograde pyelogram was performed which revealed an obstructing proximal right ureteral stone that must have been somewhat impacted. It was difficult to get a past it. I got a wire past it, then I put a safety wire up to it. I used a 10 cm balloon dilator to dilate his distal ureter since it seemed very narrow, 10 atmospheres for 5 minutes. Next, a ureteral access sheath was placed over the safety wire up into the mid ureter. A flexible ureteroscope was placed through the access sheath. Approximately 8- 9 mm proximal ureteral stone was identified. It was fragmented using a 200 micron holmium laser fiber. After good fragmentation was noted, another retrograde pyelogram was performed. There was no extravasation. After there were no significant fragments left, I placed a stent with a good curl in the renal pelvis and in the bladder. The ureteral access sheath had obviously been removed. He tolerated the procedure very well. He will follow up with me on an outpatient basis. He has to follow up to get another stent removed in 1-2 weeks. He will probably be discharged home today. He can call if there are any problems. COMPLICATIONS: None. DRAINS: A 26 cm 4.8-Korean double-J stent on the right. DESCRIPTION OF COMPLICATIONS: None. /[id number]/MODL MTDD
[2018-07-24 04:32] LABS: PLATELET COUNT 254 10^3/uL (150-400)
[2018-07-24] MEDS: TAMSULOSIN HCL 0.4 MG CAP PO SCH (09:53)
[2018-07-24 11:42] VITALS: BP 159/91
--- NOTE | 2018-07-24 14:19 | ASDISCHSUM ---
Discharge Information Plan Status:Home with No Needs Medically Cleared to Leave:07/23/2018 Discharge Date:07/23/2018 CM D/C Disposition:Home, Routine, Self-Care ADT D/C Disposition:Home, Routine, Self-Care Projected Discharge Date:07/23/2018 Transportation at D/C: Discharge Delay Reason: Follow-Up Date:07/23/2018 Discharge Slot: Final Diagnosis: Placement Information Patient Contact Information Contact Name:CALEB Relationship: Address:[address] [place]:[facility] Phone: [facility]/Zip Code:[place] [address] Email: Financial Information Financial Class:Medicaid Primary Plan Desc:MEDICAID HEALTH FIRST HORTICULTURAL MANAGER Primary Plan Number:[id number] Secondary Plan Desc: Secondary Plan Number: Assessment Information [facility] CM Progress Note CM Note CM Note Notes: CM reviewed chart. Pt lives in [place] with and was admitted for lithotripsy d/t kidney stones. Sx was yesterday and pt still has elevated creatinine today. No therapies have been ordered. Pt likely to discharge independently. CM to follow. No CM needs identified at this time. D/C Plan: independent. Date Signed: 07/23/2018 05:33 PM Electronically Signed By:Jacquie Weaver LACE LACPaulino Length of stay for Answers: 1 day current admission Acuity / Level of Answers: Yes Care: Did the patient have an inpatient admission? Comorbidities - select Answers: Other Notes: HTN, kidney stones all that apply # of Emergency department Answers: 1-2 visits in the last 6 months Score: 6 Date Signed: 07/24/2018 02:19 PM Electronically Signed By:Little Jimenez RN Intervention Information
--- NOTE | 2018-07-24 14:24 | ASMTDCNOTE ---
Case Management Discharge Discharge Order Complete? Answers: Yes Patient to Obtain Answers: via Family Medications Discharge Comments Notes: Pateint medically cleared for discharge to home. No needs identified. Date Signed: 07/24/2018 02:23 PM Electronically Signed By:Little Jimenez RN
--- NOTE | 2018-07-24 19:49 | PDDCSUM ---
Discharge Summary Discharge Summary: This is a 38 yo male admitted with right sided nephrolithiasis. He was admitted. He had Lithotripsy. Overall his abd pain is much better, although he does still have some pain. He is being d/c with f/u with Urology next week. He did have dehydration and ZANE and he was treated with IVF with resolution of this. DDX #Right sided Nephrolithiasis -[id number] right sided ureteral stone -Lithotripsy #ZANE #Right sided Hydronephrosis #Dehydration #HTN #Hypokalemia Exam: NAD AAOX3 RRR CTA B S/NT/ND MEDS: SEE MED REC F/U: PER ABOVE TOTAL TIME SPENT ON D/C IS 35 MINS
== END 2018-07-24 14:26 | disposition home or self-care (01) | DRG 465 ==
LOC: CED 12:33 → CEDHOLD 19:33 → F1N 21:12 → OBSVTOIN 07-23 13:37
PROVIDERS: ADMIT Internal Medicine; ATTEND Internal Medicine
PROC: 0TF68ZZ Fragmentation in Right Ureter, Via Natural or Artificial Opening Endoscopic (ICD-10-PCS; principal; 2018-07-23 12:30)
PROC: 0T768DZ Dilation of Right Ureter with Intraluminal Device, Via Natural or Artificial Opening Endoscopic (ICD-10-PCS; principal; 2018-07-23 12:30)
DX: N13.2 Hydronephrosis with renal and ureteral calculous obstruction (principal); N17.9 Acute kidney failure, unspecified; E86.0 Dehydration; I10 Essential (primary) hypertension; E87.6 Hypokalemia
CPT/HCPCS: 74176-PO; 80048-PO; 96374; C1726; C1758; C1769; C1894; C2625; G0378; J0690; J1100; J1170; J1200; J1885; J2001; J2405; J2704; J2765; J3010; Q9961; Q9967

== ENCOUNTER 2018-08-21 09:06 | Emergency (ER) | payer MEDICAID ==
[2018-08-21 09:12] VITALS: BP 107/76
[2018-08-21] MEDS ORDERED: NS 1,000 ML IV ONE (09:21)
[2018-08-21] MEDS ORDERED: HYDROmorphONE/DILAUDID 2 MG/ML INJ IVP ONE (09:21)
--- NOTE | 2018-08-21 09:25 | EDPHY ---
H & P Time Seen by Provider: 08/21/18 09:14 HPI/ROS: CHIEF COMPLAINT: Left-sided neck pain HISTORY OF PRESENT ILLNESS: Patient presents with 3 weeks of pain in the left side of his jaw and neck just below the angle of his mandible. He was seen by his primary clinic who told him to take ibuprofen and over the last week it has gotten worse. He has had a fever and some left ear fullness. Last night he took 2 hydrocodone and that did nothing for the pain since it was severe, and was not able to sleep. Worse with palpation, no restriction of range of motion of his neck, no trouble breathing or swallowing. No fever or chills and no dental symptoms. REVIEW OF SYSTEMS: Eye: no change in vision ENT: HPI Cardiac: no chest pain or syncope Pulmonary: no cough or SOB Abdomen: no vomiting, diarrhea, abdominal pain Musculoskeletal: HPI neck pain Skin: no rash Neuro: no headache, no dizziness or vertigo, no weakness or numbness in extremities, no difficulty with speech or mentation. Constitutional: no fever : no urinary symptoms A comprehensive 10 point review of systems is otherwise negative aside from elements mentioned in the history of present illness. PAST MEDICAL HISTORY: Kidney stones and hypertension Social history: Nonsmoker here with his kids General Appearance: Alert and conversant, cooperative. Eyes: No scleral icterus. ENT, Mouth: Normal mucous membranes. No dental tenderness or gum swelling, tympanic membranes normal bilaterally. Normal pharynx and no trismus. He has tenderness to palpation on his neck below the angle of the jaw laterally on the left side but no masses or fluctuance. Respiratory: Normal respiratory effort, breath sounds equal, lungs are clear to auscultation. Cardiovascular: Regular rate and rhythm. Gastrointestinal: Abdomen is soft and non tender. Neurological: Alert, face symmetric, normal motor and sensory in extremities. Ambulatory. Skin: Warm and dry, no rashes. Specifically no skin redness blisters or eschar on the left side of the neck. Musculoskeletal: Normal range of motion of the neck both in flexion extension and rotation. Psychiatric: Not agitated. Emergency Department course/MDM: Plan for IV Dilaudid 0.[address] soft tissue of the neck discussed and consented. Does not appear to have airway compromise at this time. 1008: Normal CT scan with IV contrast of the neck per Dr. Coronado. Results discussed with the patient, I think that symptomatic treatment is most appropriate at this time. He can follow up with the ENT clinic on Wednesday if not getting better. No evidence at this time of abscess or infection. He does not have evidence of zoster on his skin. Voice is normal and his range of motion of his neck both in rotation and flexion is normal. Smoking Status: Never smoked Constitutional: Initial Vital Signs Temperature (C) 36.4 C 08/21/18 09:10 Heart Rate 81 08/21/18 09:10 Respiratory Rate 16 08/21/18 09:10 Blood Pressure 107/76 08/21/18 09:10 O2 Sat (%) 96 08/21/18 09:10 O2 Delivery Mode Room Air Allergies/Adverse Reactions: No Known Allergies Allergy (Verified 08/21/18 09:08) Home Medications: Medication Instructions Recorded Tamsulosin HCl [Flomax] 0.4 mg PO DAILY #10 capsule 07/22/18 oxyCODONE/APAP 5/325 [Percocet 1 tab PO Q6 PRN 07/22/18 5/325 (*)] Hydrocodone/APAP 5/325 [[place] 1 - 2 tab PO Q4HRS PRN #30 tab 07/24/18 5/325 (*)] Medical Decision Making - Diagnostics Imaging Results: Normal CT of the neck with IV contrast per Dr. Coronado. Imaging: Discussed imaging studies w/ lever operator Radiologist Differential Diagnosis: Differential considered including but not limited to vascular dissection, ENT or soft tissue infection or abscess, torticollis, meningitis, sialoadenitis. - Data Points Laboratory Results: Laboratory Results 08/21/18 09:30 08/21/18 09:30 08/21/18 08/21/18 08/21/18 09:34 09:30 09:30 WBC 10.85 10^3/uL H 10^3/uL (3.80-9.50) RBC 5.29 10^6/uL 10^6/uL (4.40-6.38) Hgb 15.9 g/dL g/dL (13.7-17.5) POC Hgb 16.3 gm/dL gm/dL (13.7-17.5) Hct 45.7 % % (40.0-51.0) POC Hct 48 % % (40-51) MCV 86.4 fL fL (81.5-99.8) MCH 30.1 pg pg (27.9-34.1) MCHC 34.8 g/dL g/dL (32.4-36.7) RDW 12.1 % % (11.5-15.2) Plt Count 299 10^3/uL 10^3/uL (150-400) MPV 9.5 fL fL (8.7-11.7) Neut % (Auto) 63.3 % % (39.3-74.2) Lymph % (Auto) 24.6 % % (15.0-45.0) [place] % (Auto) 8.5 % % (4.5-13.0) Eos % (Auto) 2.8 % % (0.6-7.6) Baso % (Auto) 0.4 % % (0.3-1.7) Nucleat RBC Rel Count 0.0 % % (0.0-0.2) Absolute Neuts (auto) 6.88 10^3/uL H 10^3/uL (1.70-6.50) Absolute Lymphs (auto) 2.67 10^3/uL 10^3/uL (1.00-3.00) Absolute Monos (auto) 0.92 10^3/uL H 10^3/uL (0.30-0.80) Absolute Eos (auto) 0.30 10^3/uL 10^3/uL (0.03-0.40) Absolute Basos (auto) 0.04 10^3/uL 10^3/uL (0.02-0.10) Absolute Nucleated RBC 0.00 10^3/uL 10^3/uL (0-0.01) Immature Gran % 0.4 % % (0.0-1.1) Immature Gran # 0.04 10^3/uL 10^3/uL (0.00-0.10) POC Sodium 140 mEq/L mEq/L (135-145) Sodium 137 mEq/L mEq/L (135-145) POC Potassium 3.8 mEq/L mEq/L (3.3-5.0) Potassium 4.2 mEq/L mEq/L (3.5-5.2) POC Chloride 103 mEq/L mEq/L (97-110) Chloride 106 mEq/L mEq/L (97-110) Carbon Dioxide 21 mEq/l L mEq/l (22-31) Anion Gap 10 mEq/L mEq/L (6-14) POC BUN 14 mg/dL mg/dL (7-23) BUN 15 mg/dL mg/dL (7-23) Creatinine 1.0 mg/dL mg/dL (0.7-1.3) POC Creatinine 1.0 mg/dL mg/dL (0.7-1.3) Estimated GFR > 60 Glucose 97 mg/dL mg/dL (70-100) POC Glucose 97 mg/dL mg/dL (70-100) Calcium 9.3 mg/dL mg/dL (8.5-10.4) Medications Given: Discontinued Medications Hydromorphone HCl (Dilaudid) 0.5 mg IVP EDNOW ONE Stop: 08/21/18 09:22 Last Admin: 08/21/18 09:37 Dose: Not Given Sodium Chloride (Ns) 1,000 mls @ 0 mls/hr IV EDNOW ONE; Wide Open PRN Reason: Protocol Stop: 08/21/18 09:22 Last Admin: 08/21/18 09:35 Dose: 1,000 mls Point of Care Test Results: Chemistry 08/21/18 09:34 POC Sodium 140 mEq/L mEq/L (135-145) POC Potassium 3.8 mEq/L mEq/L (3.3-5.0) POC Chloride 103 mEq/L mEq/L (97-110) POC BUN 14 mg/dL mg/dL (7-23) POC Creatinine 1.0 mg/dL mg/dL (0.7-1.3) POC Glucose 97 mg/dL mg/dL (70-100) ISTAT H&H 08/21/18 09:34 POC Hgb 16.3 gm/dL gm/dL (13.7-17.5) POC Hct 48 % % (40-51) Departure - Departure Disposition: Home, Routine, Self-Care Clinical Impression: Neck pain on left side Condition: Good Instructions: Acute Neck Pain (ED) Additional Instructions: Oral ibuprofen 600 mg every 8 hr for the next 3 days as needed for pain. Take the hydrocodone for pain not controlled by the ibuprofen. Return immediately for trouble breathing or swallowing or neck swelling or fever or chills. Please follow-up with ear nose and throat partner management consultant on Wednesday if you're not 100% better. Referrals: Cosmo Baxter MD [Medical Doctor] - 2-3 days, if not improved
[2018-08-21 09:38] LABS: PLATELET COUNT 299 10^3/uL (150-400)
[2018-08-21] MEDS ORDERED: IOPAMIDOL (ISOVUE 370) 100 ML BTL IV ONE (09:43)
== END 2018-08-21 10:22 | disposition home or self-care (01) ==
DX: E04.1 Nontoxic single thyroid nodule (principal); I10 Essential (primary) hypertension
CPT/HCPCS: 82435-PO; 82565-PO; 82947-PO; 84132-PO; 84295-PO; 84520-PO; 85014-ER; 96374; J1170; Q9967

== ENCOUNTER 2018-08-27 17:47 | Emergency (ER) | payer MEDICAID ==
--- NOTE | 2018-08-27 18:12 | EDPHY ---
H & P Stated Complaint: Pt. states fever(100+) x2 weeks intermittent,nausea,bodyaches Time Seen by Provider: 08/27/18 18:08 HPI/ROS: CHIEF COMPLAINT: Diffuse body aches, fever and chills, nausea, cough HISTORY OF PRESENT ILLNESS: This is a 38-year-old male with a history of hypertension and right ureterolithiasis status post lithotripsy. He presents to the emergency department stating that he has been feeling for the past 3 weeks. He was evaluated in the emergency department [facility] on August 21. At that time he was complaining of left sided neck and jaw pain that has been present for at least a couple of weeks. He had a soft tissue neck CT performed that was normal with the exception of thyroid enlargement. He states that his left-sided neck and jaw pain have resolved. He does have bilateral earache worse on the left than on the right and some left tooth discomfort, but he cannot localize it to a single-tooth. In addition, he notes that he has diffuse joint and body pain, nausea without vomiting, cough that is sometimes productive, headache, and intermittent fever. He had a temperature of 100.5 degrees today. He has been taking ibuprofen on and off since he was seen in the emergency department. Today he took 400 mg of ibuprofen in the morning and 400 mg before coming to the emergency department. It has not been helping with his pain. The symptoms that are bothering him today have been present for the past 3 days; but as stated, he has not been feeling well for the past 3 weeks. He has had an influenza vaccination. No recent travel. REVIEW OF SYSTEMS: A ten system review of systems was performed and is negative with the exception of the items mentioned in the HPI. Past medical history: 1. Hypertension 2. Right ureterolithiasis status post lithotripsy in July 2018 Past surgical history: Lithotripsy July 2018 Social history: He lives with his and son. 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 He does not use tobacco products. General Appearance: Alert. Vital signs reviewed. Blood pressure 130/93, temperature 37.2 degrees, heart rate 111, respiratory rate 18, oxygen saturation 93% on room air. Eyes: Pupils equal and round, no conjunctival injection, no discharge. Anicteric. ENT, Mouth: Mucous membranes are moist, no oropharyngeal erythema or edema. No trismus. No pain with palpation of individual teeth. No gingival swelling or intraoral lesions. No swelling of the floor of the mouth. Neck: No lymphadenopathy, supple. No meningismus. Respiratory: Lungs are clear to auscultation; no wheezes, rales, or rhonchi. Cardiovascular: Regular rate and rhythm; no murmur, rub, or gallop. Gastrointestinal: Abdomen is soft and slightly tender in the right lower quadrant without guarding, no masses or organomegaly, bowel sounds normal. Skin: Warm and dry, no rashes on exposed skin, normal color. Back: Nontender to palpation over the thoracolumbar spine. No CVAT. Extremities: No lower extremity edema, no calf tenderness or swelling. Neurological: Alert and oriented. Moving all four extremities easily and equally. CISCO. EOMI. Facial expressions symmetric. Sensation intact to light touch over all 4 extremities. Psychiatric: Normal affect. - Medical/Surgical History Hx Asthma: No Hx Chronic Respiratory Disease: No Hx Diabetes: No Hx Cardiac Disease: No Hx Renal Disease: No Hx Cirrhosis: No Hx Alcoholism: No Hx HIV/AIDS: No Hx Splenectomy or Spleen Trauma: No Other PMH: kidney inf,kidney stones. HTN. Surg-none - Social History Smoking Status: Never smoked Constitutional: Initial Vital Signs Temperature (C) 37.2 C 08/27/18 17:58 Heart Rate 111 H 08/27/18 17:58 Respiratory Rate 18 08/27/18 17:58 Blood Pressure 130/93 H 08/27/18 17:58 O2 Sat (%) 93 08/27/18 17:58 O2 Delivery Mode Room Air O2 (L/minute) 2 Allergies/Adverse Reactions: No Known Allergies Allergy (Verified 08/27/18 17:53) Home Medications: Medication Instructions Recorded Hydrocodone/APAP 5/325 [[place] 1 - 2 tab PO Q4 PRN #10 tab 08/27/18 5/325 (RX)] Ondansetron Odt [Zofran Odt 4 mg 4 mg PO Q4 PRN #10 tab 08/27/18 (RX)] Medical Decision Making ED Course/Re-evaluation: 38-year-old male with 3 days of fever, body aches, cough, nausea. I think that is symptoms are consistent with influenza. Influenza testing in the emergency department is negative. CBC and chemistries are reviewed and are within normal limits. He had an acute kidney kidney injury with his ureteral stone in July but kidney function is normal today. He is aware that ibuprofen can affect his kidney function and he is concerned about taking ibuprofen excessively. In the department he received 1 L IV normal saline, 0.5 mg IV Dilaudid, and 4 mg IV Zofran. He was able to take p.o.. His lungs are clear and I do not suspect a pneumonia. He has no urinary symptoms. No skin rash or lesions. I remain concerned about the possibility of a dental infection and I am referring him to dental aid for follow-up. I am recommending symptomatic treatment and have advised him that he may feel poorly for another 3-4 days. I recommend that if he is not improving, he be seen by his primary care provider at [facility]. I am also referring him to the on-call dye machine operator, as he has been dissatisfied with the care that he has received at [facility]. His options are limited because of his insurance, Medicaid. He is not toxic appearing. He has no meningeal signs. His neurologic exam is normal. I do not suspect meningitis. Differential Diagnosis: Fever in adults including but not limited to dental infection, pneumonia, urinary tract infection, viral syndrome, and influenza. - Data Points Laboratory Results: 08/27/18 19:24 POC Sodium 139 mEq/L mEq/L (135-145) POC Potassium 3.9 mEq/L mEq/L (3.3-5.0) POC Chloride 103.0 mEq/L mEq/L (97-110) POC Total CO2 25 mEq/L mEq/L (22-31) POC BUN 10 mg/dL mg/dL (7-23) POC Creatinine 1.1 mg/dL mg/dL (0.7-1.3) POC Glucose 121 mg/dL H mg/dL (70-100) POC Calcium 9.1 mg/dL mg/dL (8.5-10.4) Medications Given: Discontinued Medications Hydromorphone HCl (Dilaudid) 0.5 mg IVP EDNOW ONE Stop: 08/27/18 18:39 Last Admin: 08/27/18 19:20 Dose: 0.5 mg Sodium Chloride (Ns) 1,000 mls @ 0 mls/hr IV EDNOW ONE; Wide Open PRN Reason: Protocol Stop: 08/27/18 18:39 Last Admin: 08/27/18 19:13 Dose: 1,000 mls Ondansetron HCl (Zofran) 4 mg IVP EDNOW ONE Stop: 08/27/18 18:39 Last Admin: 08/27/18 19:13 Dose: 4 mg Point of Care Test Results: CBC CBC Collection Date 08/27/18 CBC Collection Time 18:51 WBC 9.3 RBC 4.84 HGB 14.6 HCT 41.1 PLT 350 Neut # 6.9 Neut 74.0 LYMPH # 1.5 LYMPH 16.0 Other WBC # 0.9 Other WBC 10.0 MCV 84.9 Chemistry 08/27/18 19:24 POC Sodium 139 mEq/L mEq/L (135-145) POC Potassium 3.9 mEq/L mEq/L (3.3-5.0) POC Chloride 103.0 mEq/L mEq/L (97-110) POC Total CO2 25 mEq/L mEq/L (22-31) POC BUN 10 mg/dL mg/dL (7-23) POC Creatinine 1.1 mg/dL mg/dL (0.7-1.3) POC Glucose 121 mg/dL H mg/dL (70-100) POC Calcium 9.1 mg/dL mg/dL (8.5-10.4) Influenza PCR Flu Nasal Swab Collection Date 08/27/18 Flu Nasal Swab Collection Time 18:56 Influenza A Result Not Detected Influenza B Result Not Detected Departure - Departure Disposition: Home, Routine, Self-Care Clinical Impression: Acute viral syndrome Condition: Good Instructions: Hydrocodone/Acetaminophen (By mouth), Ondansetron (By mouth), Viral Syndrome (ED) Additional Instructions: I think that you have a viral illness. Antibiotics will not help. Adult Pain & Fever Control: We recommend Acetaminophen (Tylenol) and Ibuprofen (Motrin,Advil) for pain and fever control. When fever is high or pain severe, both drugs can be used at the same time, but at different intervals. Please note the time differences. Your dose is: Acetaminophen 650mg every 4 to 6 hours Ibuprofen formg every 6 hours with food Note: do not take Acetaminophen with Hydrocodone (Vicodin, Lortab) or Oycodone (Percocet). These medications also contain Acetaminophen. No more than 3000mg of Acetaminophen should be taken in 24 hours (for an adult). I am also prescribing Vicodin/Biggers. This is a pain medicine that contains hydrocodone, an opiate medication, and Tylenol. When you are taking this you need to watch your overall dose of Tylenol. You can still take ibuprofen along with the Biggers. I am also prescribing Zofran, a medication for nausea. Let it dissolve under tongue so that you do not have vomiting. You can use this medicine every 4 hr if needed. You need to try hard to drink enough water to stay hydrated. You should rest as much as possible. It will take a while for your energy to return. I am worried that you might have a tooth infection. I am referring you to dental aid. You can call them on Wednesday and they should set up an appointment for you let them know that you were referred by the emergency department. If you are worse in any way--if you can't eat or drink because of nausea and vomiting, if you are confused, if you have weakness or numbness on only one side of your body, if you have pain or trouble urinating, if you have severe persistent headache and a stiff neck--you need to return to the emergency department for another evaluation. If you're not feeling better in a couple of days you should see your primary care doctor. Referrals: RADHA SUAREZ [Other] - As per Instructions Lynne Morris MD [Medical Doctor] - As per Instructions Dental Aid [Outside] - As per Instructions Stand Alone Forms: Narcotic Guidelines Prescriptions: Hydrocodone/APAP 5/325 [Biggers 5/325 (RX)] 1 - 2 tab PO Q4 PRN #10 tab PRN Reason: pain Ondansetron Odt [Zofran Odt 4 mg (RX)] 4 mg PO Q4 PRN #10 tab PRN Reason: nausea
[2018-08-27] MEDS ORDERED: ONDANSETRON 4 MG/2 ML VIAL IVP ONE (18:38)
[2018-08-27] MEDS ORDERED: HYDROmorphONE/DILAUDID 2 MG/ML INJ IVP ONE (18:38)
[2018-08-27] MEDS ORDERED: NS 1,000 ML IV ONE (18:38)
[2018-08-27] MEDS ORDERED: HYDROCOD/APAP 5/325 PREPACK#6 BTL TAKEHOME ONE (20:20)
[2018-08-27] MEDS ORDERED: ONDANSETRON 4MG PREPACK#2 BTL TAKEHOME ONE (20:20)
[2018-08-27 21:57] VITALS: BP 127/83
== END 2018-08-27 20:22 | disposition home or self-care (01) ==
LOC: CED 17:47
DX: B34.9 Viral infection, unspecified (principal); E86.9 Volume depletion, unspecified
CPT/HCPCS: 80048-ER; 96361-ER; 96374-ER; 96375-ER; 99284-ER; J1170; J2405

== ENCOUNTER 2018-12-31 05:48 | Emergency (ER) | payer MEDICAID | END 2018-12-31 08:00 | disposition home or self-care (01) | LOC: CED 05:48 ==